=== PATIENT | female | born 1975 | race Caucasian/White ===

== ENCOUNTER 2025-05-23 04:18 | Observation (INO) | payer OTHER ==
[2025-05-23] VITALS (14 sets, daily range): BP systolic 110–141; BP diastolic 55–89
[~2025-05-23] VITALS: Ht 160 cm; Wt 63.9 kg
[~2025-05-23 04:18] MED LIST: DOCU100 PO; IBUP800 PO; Milk Of Ma400 MG/5 M PO; OXYACE5T PO; Verotin-Gr Cap1 EACH PO
[2025-05-23 04:57] LABS: Source, Urine Clean Catch
[2025-05-23] MEDS ORDERED: FentaNYL Citrate 50 MCG/ML 2 ML Injection IV PRN ×3 (05:00→09:55)
[2025-05-23 05:03] LABS: BASOPHILS ABSOLUTE AUTO 0.08 K/mm3 (0.00-0.23); BASOPHILS PERCENT AUTO 1 % (0-2); EOSINOPHILS ABSOLUTE AUTO 0.18 K/mm3 (0.00-0.68); EOSINOPHILS PERCENT AUTO 3 % (0-6); Hematocrit 38.2 % (33.0-51.0); Hemoglobin 12.9 g/dL (11.5-16.0); IMMATURE GRAN ABSOLUTE AUTO 0.01 K/mm3 (0.00-0.10); IMMATURE GRAN PERCENT AUTO 0 % (0-1); LYMPHOCYTES ABSOLUTE AUTO 2.34 K/mm3 (0.84-5.20); LYMPHOCYTES PERCENT AUTO 39 % (21-46); MONOCYTES ABSOLUTE AUTO 0.46 K/mm3 (0.16-1.47); MONOCYTES PERCENT AUTO 8 % (4-13); Mean Corpuscular HGB Conc 33.8 g/dL (31.5-36.5); Mean Corpuscular Volume 95 fL (80-100); NEUTROPHILS ABSOLUTE AUTO 2.95 K/mm3 (1.96-9.15); NEUTROPHILS PERCENT AUTO 49 % (41-73); NRBC ABSOLUTE 0.00 K/mm3 (0.00-0.02); NRBC Auto 0.0 /100 WBC (0.0-0.2); Platelet Count 234 K/mm3 (150-400); RDW Coefficient Variation 12.4 % (11.7-14.2); RDW Standard Deviation 43.7 fL (35.1-46.3)
[2025-05-23 05:10] LABS: Bilirubin, Urine Neg (Neg); Color, Urine Yellow (P-Yellow); Glucose Qualitative, Urine Neg (Neg); Ketones, Urine Neg (Neg); Leukocyte Esterase, Urine Neg (Neg); Protein, Urine 1+ (Neg); Specific Gravity, Urine 1.025 (1.003-1.022); Urobilinogen, Urine NORM (Normal)
[2025-05-23 05:22] LABS: Red Blood Cells, Urine 0-2 /hpf (0-2); White Blood Cells, Urine 0-2 /hpf (0-5)
[2025-05-23 05:33] LABS: Alanine Aminotransfer (ALT/SGP 26.0 U/L (12-78); Albumin, Blood 3.5 g/dL (3.4-5.0); Albumin/Globulin Ratio 1.2 (0.8-1.8); Anion Gap 7.0 mmol/L (3-11); Aspartate Aminotrans (AST/SGOT 26.0 U/L (12-37); Bilirubin, Total 0.3 mg/dL (0.1-1.0); Blood Urea Nitrogen 20.0 mg/dL (8-24); CO2, Blood 26.0 mmol/L (21-32); Calcium, Blood 8.7 mg/dL (8.5-10.1); Chloride, Blood 108.0 mmol/L (98-108); Creatinine, Blood 0.87 mg/dL (0.40-1.00); Globulin, Blood 3.0 g/dL (2.2-4.0); Glucose, Blood 111.0 mg/dL (70-99); Potassium, Blood 3.4 mmol/L (3.5-5.5); Sodium, Blood 138.0 mmol/L (136-145); Total Protein, Blood 6.5 g/dL (6.4-8.2)
[2025-05-23] MEDS ORDERED: HYDROmorphone HCl/Pf 1MG SYR IV PRN ×2 (08:30→09:55)
[2025-05-23] MEDS ORDERED: Ondansetron HCl 2 MG / ML 2ML Vial IV PRN ×2 (08:30→09:50)
[2025-05-23] MEDS ORDERED: FLU VACC TS2025-26(6MOS UP)/PF 45 MCG/0.5 ML SYRINGE IM SCH (08:30)
[2025-05-23] MEDS ORDERED: Ketorolac Tromethamine 15mg Vial IV PRN (09:00)
[2025-05-23] MEDS ORDERED: Albuterol 2.5 MG/3 ML VIAL INH PRN (09:55)
--- NOTE | 2025-05-23 10:24 | NUR ---
PT TO ROOM 211. IV TO SL. CHG BATH IN PROGRESS. NPO SINCE 2129 YESTERDAY. PT TO BR TO VOID AND COMPLETE BATH.
[2025-05-23] MEDS ORDERED: Bupivacaine 0.5% W/EPI 1:200000 SDV 30 ML Vial ONE (11:02)
[2025-05-23] MEDS ORDERED: FentaNYL Citrate 50 MCG/ML 2 ML Injection ONE ×3 (11:28→14:28)
--- NOTE | 2025-05-23 12:10 | NUR ---
PT TO OR VIA BED.
[2025-05-23] MEDS ORDERED: Midazolam HCl 1MG / ML 2ML Vial ONE (12:41)
--- NOTE | 2025-05-23 12:46 | NUR ---
PT TO PACU VIA [facility] AT 1215 FROM RM 211 FOR PREOP CARE. PLEASANT, BUT ANXIOUS. AT [facility] SIDE. WARM BLANKETS PLACED. NOW APPEARS LESS ANXIOUS. SURGICAL PACK COMPLETE. SURGICAL HAT/PAS SLEEVE/BP CUFF IN PLACE. LR AT TKO. LEFT NARE RING COVERED w/PAPER TAPE/JEWELRY CONSENT SIGNED & DATED. AFEBRILE/VSS. NO COMPLAINTS AT THIS TIME. WILL CONTINUE TO MONITOR PT WHILE IN MY CARE.
--- NOTE | 2025-05-23 12:52 | NUR ---
PT TO OR 1 VIA [facility] IN STABLE CONDITION AT 1245.
[2025-05-23] MEDS ORDERED: Midazolam HCl 1MG / ML 2ML Vial IV ONE (13:00)
[2025-05-23] MEDS ORDERED: Dexamethasone Sod Phos 10 MG/ML 1ML VIAL ONE (13:33)
[2025-05-23] MEDS ORDERED: Ondansetron HCl 2 MG / ML 2ML Vial ONE (13:33)
[2025-05-23] MEDS ORDERED: Sugammadex Sodium 200 MG/2ML SDV (100 MG/ML) ONE (13:33)
[2025-05-23] MEDS ORDERED: Ketorolac Tromethamine 30mg Vial ONE (13:34)
[2025-05-23] MEDS ORDERED: Rocuronium Bromide 10 MG/ML 5ML Injection IV ONE (13:34)
--- NOTE | 2025-05-23 15:02 | NUR ---
PT TO ROOM 211 FROM PACU. LAP SITES X-4 WITH DERMABOND TO ABD CDI. PT ALERT TO VERBAL. POST OP VS STARTED AND STABLE. SO AT BEDSIDE. WILL CONTINUE TO MONITOR.
[2025-05-23] MEDS ORDERED: Acetaminophen650 M1 PO (15:19)
[2025-05-23] MEDS ORDERED: OXAYDO5 M1 PO (15:20)
--- NOTE | 2025-05-23 17:17 | NUR ---
SHIFT SUMMARY PT TO OR FOR LAP [place]. 4 LAP SITES PRESENT. SIPPING ON CLEAR LIQUIDS AND TAKING OXYCODONE FOR PAIN.
--- NOTE | 2025-05-23 18:23 | NUR ---
DC INSTRUCT REVIEWED. STATED UNDERSTANDING. DISCHARGED TO POV VIA W/C.
== END 2025-05-23 18:17 | disposition home or self-care (01) ==
LOC: ER 04:18 → SURS 04:19 → ER 04:19 → SURS 10:25
PROVIDERS: Emergency Medicine; ADMIT Surgery
PROC: BF50200 Other Imaging of Bile Ducts using Fluorescing Agent, Indocyanine Green Dye, Intraoperative (ICD-10-PCS; principal; 2025-05-23 13:00)
PROC: 0FJ44ZZ Inspection of Gallbladder, Percutaneous Endoscopic Approach (ICD-10-PCS; principal; 2025-05-23 13:00)
PROC: 0FT40ZZ Resection of Gallbladder, Open Approach (ICD-10-PCS; principal; 2025-05-23 13:00)
DX: K80.62 Calculus of gallbladder and bile duct with acute cholecystitis without obstruction (principal); Z79.899 Other long term (current) drug therapy; Z88.5 Allergy status to narcotic agent
CPT/HCPCS: 76705; 80053; 81001; 85025; 87086; 88304; 96374; 99285-25; A9270; G0378; J1100; J1885; J2250; J2405; J2704; J3010; J7120